=== PATIENT | female | born 1940 | race Caucasian/White ===

== ENCOUNTER 2018-04-11 10:00 | Inpatient (IN) | payer MEDICARE, BC ==
[2018-04-08 13:06] VITALS: BMI 20.5
[2018-04-11 11:24] LABS: #Eosinphils 0.3 thou/uL (0.0-0.7); #Lymphocytes 1.2 thou/uL (1.20-3.40); #Monocytes 0.4 thou/uL (0.11-0.59); #Neutrophils 2.9 thou/uL (1.40-6.50); %Basophils 0.6 % (0.0-1.0); %Eosinophils 6.4 % (0.0-10.0); %Lymphocytes 24.7 % (21.0-51.0); %Monocytes 8.5 % (0.0-10.0); %Neutrophils 59.8 % (42.0-75.0); Hemoglobin 13.1 g/dL (12.0-16.0); Mean Corpuscular HGB CONC 33.9 g/dL (32.0-36.0); Mean Corpuscular Hemoglobin 30.2 pg (27.0-31.0); Mean Corpuscular Volume 89.2 fL (78.0-98.0); Mean Platelet Volume 7.3 fL (7.4-10.4); Platelet Count 163 thou/uL (130-400); RBC Distribution Width 12.3 % (11.5-14.5); Red Blood Cell (RBC) Count 4.34 mill/uL (4.20-5.40); White Blood Cell (WBC) Count 4.9 thou/uL (4.8-10.8)
[2018-04-11 11:42] LABS: Anion Gap 12 mmol/L (10-20); BUN (Urea Nitrogen) 13 mg/dL (9.8-20.1); Calc. Creatinine Clearance 73 mL/min (70-130); Calcium 9.3 mg/dL (7.8-10.44); Carbon Dioxide 24 mmol/L (23-31); Chloride 107 mmol/L (98-107); Estimated GFR-MDRD Greater than 90; Glucose 119 mg/dL (83-110); Potassium 3.5 mmol/L (3.5-5.1); Sodium 139 mmol/L (136-145)
[2018-04-11] MEDS ORDERED: Lidocaine 2% Jelly 5 ML TUBE ONE (13:26)
[2018-04-11] MEDS ORDERED: Fentanyl 100 MCG/2 ML VIAL ONE ×2 (13:26→15:24)
[2018-04-11] MEDS ORDERED: CEFAZOLIN/Water 2 GM/20 ML SYRINGE ONE (13:53)
[2018-04-11] MEDS ORDERED: Bacitracin Zinc Ointment 30 gm TUBE ONE (14:58)
[2018-04-11] MEDS ORDERED: Ondansetron HCl/PF 4 MG/2 ML Vial ONE (16:31)
[2018-04-11] MEDS ORDERED: Glycopyrrolate 0.2 MG/ML 5 ML SYRINGE ONE (16:31)
[2018-04-11] MEDS ORDERED: Lidocaine 1% PF 5 ML VIAL ONE (16:31)
[2018-04-11] MEDS ORDERED: PROPOFOL 200 MG/20 ML VIAL ONE (16:31)
[2018-04-11] MEDS ORDERED: diphenhydrAMINE 50 MG/ML VIAL IVP PRN (16:46)
[2018-04-11] MEDS ORDERED: Ondansetron HCl/PF 4 MG/2 ML Vial SLOW IVP PRN (16:46)
[2018-04-11] MEDS ORDERED: Promethazine HCl 12.5 MG SUPP PR PRN (16:46)
[2018-04-11] MEDS ORDERED: traMADol HCl 50 MG TAB PO PRN (16:46)
[2018-04-11] MEDS ORDERED: Promethazine HCl 25 MG/ML VIAL IM PRN (16:46)
[2018-04-11] MEDS ORDERED: Mag-Al 1200 mg/1200 mg/30 ML UDCUP PO PRN (16:46)
[2018-04-11] MEDS ORDERED: Promethazine 25 MG TAB PO PRN (16:46)
[2018-04-11] MEDS ORDERED: diphenhydrAMINE 25 MG CAP PO PRN (16:46)
[2018-04-11] MEDS: Sodium Chloride 0.9% 1,000 ML IV SCH (17:20)
[2018-04-11] MEDS: HYDROcodone/Acetaminophen 10/325 mg Tablet PO PRN ×2 (17:20→21:55)
--- NOTE | 2018-04-11 18:09 | OP ---
DATE OF PROCEDURE: 04/11/2018 SURGEON: Lucas Garza M.D. TOBACCO DRUMMER: Andry Conner PROCEDURE: L3-4 laminectomy, resection of right L3-L4 extradural mass. PROCEDURE IN DETAIL: The patient was brought to the operating room and intubated. She was rolled in the prone position on gel-filled chest rolls. The previous incision was reopened and extended expos ing L3 and L4. Scar tissue from prior right L3-L4 hemilaminectomy was identified. We performed comp lete L4 and inferior L3 laminectomies. The dura had an unusual appearance and was indented on the ri ght for unclear reasons that did not regain its normal shape after decompression. Additionally, adam ral areas are grossly attenuated. Dura underneath scar tissue were identified and najma CSF was eman ating from these areas. We removed extensive scar tissue and some calcified synovial cyst debris from the left L3-4 lateral r ecess. A complete decompression of left L3-4 was achieved. There were several areas where the dura was attenuated and it is possible that the scar and calcified debris could have gradually violated th e dura over time. We did not, however, open the dura to explore this. The areas of dural attenuatio n were covered with Gelfoam. The wound was extensively irrigated, immaculate hemostasis was secured. Vancomycin powder was applied and the wound was closed in anatomic layers.
[2018-04-11] MEDS ORDERED: Prevnar 13-Val Conj/PF 0.5 ML SYRINGE IM ONE (21:00)
[2018-04-11] MEDS: tiZANidine HCl 4 MG TAB PO PRN (21:55)
[2018-04-11 23:50] LABS: Bilirubin Negative (Negative); Blood, Urine Negative (Negative); Clarity CLEAR (Clear); Glucose, Urine (Dipstick) Negative (Negative); Leukocyte Negative (Negative); Nitrite Negative (Negative); Protein, Urine (Dipstick) Negative (Neg-Trace); Specific Gravity, Urine 1.007 (1.002-1.036); Urobilinogen 0.2 mg/dL (0.2-1.0); pH, Urine 7.5 (5.0-9.0)
[2018-04-11 23:54] LABS: Bacteria/HPF None Seen HPF (None Seen); Hyaline Casts/LPF 0-3 HYALINE CAST LPF (0-3 Hyaline); Pathc Cast-AUWi Flag 0.72 (0-2.49); RBC/HPF 0-3 HPF (0-3); Squamous Epithelial None Seen HPF (0-3); WBC/HPF None Seen HPF (0-3)
[2018-04-12] MEDS: Sodium Chloride 0.9% 1,000 ML IV SCH ×2 (06:18→20:09)
--- NOTE | 2018-04-12 07:20 | PRG ---
DATE OF SERVICE: 04/12/2018 SUBJECTIVE: The patient is a 77-year-old female status post L3-L4 laminectomy, postoperative day #1. Overnight, she reports she continues to have significant pain in the left lower extremity, particularly with movement. When she is lying flat in the bed, she denies any significant discomfort. She is getting p.r.n. hydrocodone and a muscle relaxer as well as p.r.n. morphine as required for pain. She is tolerating a regular diet. She has had some difficulty with voiding overnight with a bladder scan of 700, which required I and O catheterization x1. UA was sent, which was negative for any infection. The patient is lying in the bed comfortably as long as she is still. She is weak throughout the lower extremities as well has a left foot drop, which is unchanged from her baseline. She has a positive left straight leg raise and contralateral SLR. We will continue to monitor her urinary retention closely as well I will also work on pain control, mobilization with PT. I discussed her persistent severe LLE pain with Dr. Garza and we will get am MRI lumbar spine with and without contrast. I anticipate the need for inpatient rehabilitation at some point and I have discussed this with the family as well. Case management will assist with inpatient rehabilitation placement. I will also add gabapentin 300 mg t.i.d. for the patient's left leg radicular pain. SAULD
[2018-04-12] MEDS: HYDROcodone/Acetaminophen 10/325 mg Tablet PO PRN ×3 (08:27→21:05)
[2018-04-12] MEDS: Gabapentin 300 MG CAP PO SCH ×3 (08:27→20:09)
[2018-04-12] MEDS: Carvedilol 3.125 MG TAB PO SCH ×2 (08:27→20:09)
[2018-04-12] MEDS: Amlodipine 5 MG TAB PO SCH (08:31)
[2018-04-12] MEDS ORDERED: Amlodipine 5 MG TAB PO SCH (09:00)
[2018-04-12] MEDS ORDERED: Carvedilol 3.125 MG TAB PO SCH (09:00)
--- NOTE | 2018-04-12 09:38 | EKG ---
Test Reason : PREOP Blood Pressure : / mmHG Vent. Rate : 075 BPM Atrial Rate : 075 BPM P-R Int : 164 ms QRS Dur : 130 ms QT Int : 440 ms P-R-T Axes : 059 -53 112 degrees QTc Int : 491 ms Normal sinus rhythm Left axis deviation Left bundle branch block Abnormal ECG No previous ECGs available Confirmed by BETHANY MEJIA ([id number]) on 04/12/2018 9:37:45 AM Referred By: AUTUMN Confirmed By:BETHANY MEJIA
[2018-04-12] MEDS: Morphine 4 MG/ML VIAL SLOW IVP PRN ×2 (09:56→11:15)
--- NOTE | 2018-04-12 13:45 | MRI ---
BRAIN MRI WITH AND WITHOUT CONTRAST: HISTORY: Left lower extremity pain. Weakness. COMPARISON: None. TECHNIQUE: A brain MRI is performed with and without intravenous Gadolinium administration. Multisequential, mu ltiplanar imaging is performed. FINDINGS: No acute hemorrhage on the axial gradient echo sequence. There is blooming involving the right front al lobe, parafalcine in location, as well as in the posterior and slightly lateral right frontal lobe , just anterior to the sylvian fissure. Blooming is presumed to be due to remote insult versus possi chandler small cavernoma. There is hemosiderin deposition secondary to a remote insult involving the genu of the right internal capsule. There are T2 and FLAIR white matter hyperintensities, which are most compatible with chronic small vessel ischemic change. There is malacic and gliotic change involving the medial left occipital lobe. On the post contrast images, there is no pathologic enhancement of the brain parenchyma. No abnormal enhancement in the region of blooming. The calvarium has a normal T1 marrow signal intensity. Midline brain parenchymal structures are unre markable. The central arterial flow voids are maintained. Absent restricted diffusion. There appear to be an increased number of vessels near the right carotid terminus/anterior communicating artery. The possi bility of a tortuous right internal carotid artery versus and anterior communicating artery aneurysm cannot be excluded. Better interrogation with CT angiogram of the [place] is recommended. Adequate aeration of the visualized sinuses and mastoid air cells. No pathologic enhancement of the brain parenchyma. IMPRESSION: 1. No pathologic enhancement of the brain parenchyma. Absent restricted diffusion. No acute infarc t. 2. Hemosiderin deposition and blooming, as described above. No associated enhancement. The possibi lity of small cavernoma versus sequela of remote hemorrhagic lacunar infarcts are differential consid erations. 3. Questionable aneurysm involving the right carotid terminus versus the anterior communicating karmen ry. Findings may be due to vascular tortuosity. CT angiogram of the [place] is recommended . POS: ALEXANDRA
--- NOTE | 2018-04-12 15:56 | MRI ---
MRI LUMBAR SPINE WITH AND WITHOUT CONTRAST: History: Left lower extremity pain. Post-operative day 1. Comparison: None. Technique: MRI lumbar spine is performed with and without intravenous gadolinium administration. Mult isequential, multiplanar imaging was performed. FINDINGS: There is appropriate T1 marrow signal intensity of the lumbar vertebrae. Vertebral body height is kee ntained. No fracture. No significant STIR hyperintensity to suggest vertebral body edema. There is no abnormal enhancement within the thecal sac, including the cauda equina and conus medullar is. Laminectomy defect at L3-4, L4-5, and L5-S1. T1 and T2 hypointensity along the frontal spinal canal and posterior epidural space at L3, L3-4 disc space. There is enhancing tissue at the operative site suggesting phlegmon of chain/scar formation. T12-L1: Desiccation with mild loss of disc space height. Central disc bulge. Mild central canal steno sis. Mild bilateral foraminal narrowing. L1-2: Desiccation with mild loss of disc space height. There is a broad based disc bulge along with w hat appears to be posterior midline calcification of the longitudinal ligaments overlying a superior and inferior disc extrusion. This results in moderate central canal stenosis. Mild right and mild to moderate left foraminal narrowing. L2-3: Small amount of fluid in the disc space. There is severe loss of disc space height. There is a broad based disc bulge with a left paracentral component. Mild central canal stenosis. Mild right and left foraminal narrowing. L3-4: There is fluid in the disc space. There is a broad based disc bulge and facet hypertrophy. Ther e is severe central canal stenosis. Moderate right and moderate to severe left foraminal narrowing. At the superior aspect of L4, there is a T2 isointense, T1 hypointense, enhancing focus measuring 1.0 x 0.7 cm. Findings may be due to scar formation. The possibility of a meningioma or other benign mas ses cannot be excluded. There does appear to be some enhancement of the foraminal L4 nerve root. Ther e is severe central canal stenosis. L4-5: Disc desiccation with mild loss of disc space height. There is a broad based disc bulge with re sultant moderate central canal stenosis. There may be a small annular fissure along the inferior post erior annulus. Moderate bilateral foraminal narrowing. L5-S1: Severe loss of disc space height. There is a central/left disc protrusion. Disc material abuts and appears to traverse the left S1 nerve root. Mild central canal stenosis. Moderate bilateral fora bishnu narrowing. There is post-operative edema involving the paraspinal soft tissues with associated enhancement. IMPRESSION: 1. Hypointensity involving the posterior epidural space and intrathecal sac, likely representing air from a recent surgery. 2. Enhancing scar tissue at the expected laminectomy defect site. 3. Enhancing focus along the posterior aspect of the thecal sac at L4 which may represent scar tissue . Meningioma or other benign masses cannot be excluded. There appears to be reactive enhancement invo lving the foraminal left L4 nerve root. 4. Effacement of the traversing left S1 nerve root secondary to disc material. 5. There is moderate central canal stenosis at L4-5. 6. Findings were discussed with Renetta Antonio, 04-12-18 at 3:12 p.m. Code CR POS: ALEXANDRA
--- NOTE | 2018-04-12 16:01 | PDOC.PN ---
- Subjective Encounter Start Date: 04/12/18 Encounter Start Time: 11:00 Subjective: pt up in bed was having a lot of pain today - Objective Vital Signs & Weight: Vital Signs (12 hours) Temp Pulse Resp BP BP Pulse Ox 04/12/18 13:20 99.0 F 92 18 132/63 92 L 04/12/18 08:31 100 116/66 04/12/18 08:27 92 L 04/12/18 07:59 100.3 F H 100 18 116/66 92 L 04/12/18 04:00 99.2 F 97 18 102/61 92 L Weight Weight 135 lb I&O: 04/11/18 04/12/18 04/13/18 06:59 06:59 06:59 Intake Total 200 Balance 200 Result Diagrams: 04/11/18 11:12 04/11/18 11:12 Phys Exam - Physical Examination Neck: no nodes, no JVD, supple, full ROM Respiratory: no wheezing, no rales, no rhonchi, wheezing present, clear to auscultation bilateral Cardiovascular: RRR, no significant murmur, no rub, gallop, irregular Gastrointestinal: soft, non-tender, no distention, positive bowel sounds Musculoskeletal: no edema Neurological: moves all 4 limbs left foot drop Dx/Plan (1) Hypertension Code(s): I10 - ESSENTIAL (PRIMARY) HYPERTENSION Status: Acute (2) S/P laminectomy Code(s): Z98.890 - OTHER SPECIFIED POSTPROCEDURAL STATES Status: Acute - Plan pt had severe pain this am -: will put holding parameters on her bp meds -: MRI lumbar ordered. * . Review of Systems - Review of Systems Respiratory: negative: Cough, Dry, Shortness of Breath, Hemoptysis, SOB with Excertion, Pleuritic Pain, Sputum, Wheezing Cardiovascular: negative: chest pain, palpitations, orthopnea, paroxysmal nocturnal dyspnea, edema, light headedness, other Gastrointestinal: negative: Nausea, Vomiting, Abdominal Pain, Diarrhea, Constipation, Melena, Hematochezia, Other Genitourinary: Retention Musculoskeletal: Back Pain - Medications/Allergies Allergies/Adverse Reactions: Allergies Allergy/AdvReac Type Severity Reaction Status Date / Time Corticosteroids Allergy Intermediate Rash Verified 04/11/18 12:51 (Glucocorticoids) corti Allergy Uncoded 04/11/18 12:51 Medications: Current Medications Hydrocodone Bitart/Acetaminophen (Welch 10/325) 1 tab PO Q4H PRN PRN Reason: PAIN (1-3) Last Admin: 04/12/18 08:27 Dose: 1 tab Hydrocodone Bitart/Acetaminophen (Welch 10/325) 2 tab PO Q4H PRN PRN Reason: PAIN (4-6) Last Admin: 04/12/18 13:03 Dose: 2 tab Al Hydroxide/Mg Hydroxide (Maalox) 30 ml PO Q4H PRN PRN Reason: Heartburn or Indigestion Amlodipine Besylate (Norvasc) 5 mg PO DAILY [facility] Last Admin: 04/12/18 08:31 Dose: Not Given Carvedilol (Coreg) 3.125 mg PO BID [facility] Last Admin: 04/12/18 08:27 Dose: 3.125 mg Diphenhydramine HCl (Benadryl) 25 mg PO Q6H PRN PRN Reason: Itching Diphenhydramine HCl (Benadryl) 25 mg IVP Q6H PRN PRN Reason: Itching Gabapentin (Neurontin) 300 mg PO TID [facility] Last Admin: 04/12/18 15:37 Dose: 300 mg Sodium Chloride (Normal Saline 0.9%) 1,000 mls @ 75 mls/hr IV .[id number] [facility] Last Admin: 04/12/18 06:18 Dose: Not Given Morphine Sulfate (Morphine) 2 mg SLOW IVP Q1H PRN PRN Reason: Moderate Breakthrough Pain Morphine Sulfate (Morphine) 4 mg SLOW IVP Q1H PRN PRN Reason: SEVERE BREAKTHROUGH PAIN Last Admin: 04/12/18 11:15 Dose: 4 mg Ondansetron HCl (Zofran) 4 mg SLOW IVP Q8H PRN PRN Reason: Nausea/Vomiting Promethazine HCl (Phenergan) 12.5 mg IM Q4H PRN PRN Reason: Nausea/Vomiting Promethazine HCl (Phenergan) 12.5 mg PO Q4H PRN PRN Reason: Nausea/Vomiting Promethazine HCl (Phenergan Suppository) 12.5 mg MT Q4H PRN PRN Reason: Nausea/Vomiting Sodium Chloride (Flush - Normal Saline) 10 ml IVF PRN PRN PRN Reason: Saline Flush Tizanidine HCl (Zanaflex) 4 mg PO Q6H PRN PRN Reason: MUSCLE SPASM Last Admin: 04/11/18 21:55 Dose: 4 mg Tramadol HCl (Ultram) 50 mg PO Q6H PRN PRN Reason: PAIN (1-3) Tramadol HCl (Ultram) 100 mg PO Q6H PRN PRN Reason: PAIN (4-6)
[2018-04-12] MEDS ORDERED: Gadobenate Dimeglumine 529 MG/1 ML (20ML VIAL) ONE (16:02)
[2018-04-12] MEDS ORDERED: Dexamethasone 4 mg/ml Vial SLOW IVP SCH (19:15)
--- NOTE | 2018-04-13 02:12 | PRG ---
DATE OF SERVICE: 04/12/2018 Ms. Siu continues to have a severe left leg pain and even some migratory right leg pain. She is hav ing some urinary retention, but has full strength and sensation in the lower extremities within the l imits of what her pain will allow. Given these findings, I obtained another MRI scan of the lumbar spine. This shows residual mass in t he left L3-L4 lateral recess. It is contrast enhancing. Because we have just explored the space, I am suspicious that this may represent an intradural lesion. If so, it could represent tumor, or coul d represent intradural migration of a herniated disk or other degenerative process. After extensive review of the patient's previous imaging, history, and the current imaging, I am pio mmending reexploration. I think it would be imperative to do this soon prior to the development of a ny new scar tissue. I think we will re-explore the extradural space, but assuming we did not find th e structural lesion. We then opened the dura and explore for an intradural lesion. They understand that the differential diagnosis is broad and that this case is very unusual with high dose of uncerta inty. They also understand the extensive risks involved including an unquantifiable risk of new neur ologic deficit, certainly now less than 10%. I was quite with them in this regard. However, t he patient had been completely mobilized prior to the procedure and had to be brought in by ambulance and they do not feel that make him continue in the current situation. After extensive discussion of the indications, risks, benefits, alternatives of the re-exploration with possible resection of intr adural tumor. They expressed understanding. All questions were answered and they wish to proceed.
[2018-04-13] MEDS: Sodium Chloride 0.9% 1,000 ML IV SCH ×3 (02:30→20:29)
[2018-04-13] MEDS: Morphine 4 MG/ML VIAL SLOW IVP PRN (05:14)
[2018-04-13] MEDS ORDERED: CEFAZOLIN/Water 2 GM/20 ML SYRINGE ONE (06:35)
[2018-04-13] MEDS ORDERED: Phenylephrine HCL 10 MG/ML VIAL ONE (07:00)
[2018-04-13] MEDS ORDERED: Fentanyl 100 MCG/2 ML VIAL ONE (07:24)
[2018-04-13] MEDS ORDERED: Sodium Chloride 0.9% 10 ML ONE (08:58)
[2018-04-13] MEDS ORDERED: Acetaminophen 650 MG in Premix Bag 1 BAG IVPB PRN (10:10)
--- NOTE | 2018-04-13 13:12 | OP ---
DATE OF PROCEDURE: 04/13/2018 SURGEON: Lucas Garza M.D. FRAME COVERER: Andry Conner PROCEDURE: Reexploration L3-4 laminectomy, resection of intradural mass. PROCEDURE IN DETAIL: The patient was brought to the operating room and intubated. She was rolled in the prone position on gel-filled chest rolls. The previous incision was reopened and the laminectom y defect was identified as well as the dural exposure. We performed a modest amount of additional naz ne work in the region of the left L4 pedicle to maximize exposure. I explored extradurally and found no compressive lesions. We next opened the dura and identified a white mass centrally. The mass is felt like disk material. I dissected circumferentially around the mass and it was quite stuck to al l the rootlets of the cauda equina. There did not seem to be an origin or an exit of any rootlets. There was significant adherence throughout. We completely dissected the lesion and then cut its site of origin which seemed to be emanating from the anterolateral region, presumably the L3-4 disk space . The lesion was then removed in its entirety. Frozen section during the procedure suggested cartil aginous material without neoplasm. The final entire specimen was sent for pathologic examination. The intradural space was then irrigated with saline and the dura was closed with 4-0 Prolene. It was impossible to get a watertight closure given several areas of dural thinning an opening which we had identified the previous surgery. Next, some DuraSeal, a small amount was laid over the dural openin g. The wound was then extensively irrigated, immaculate hemostasis was secured. Vancomycin powder w as applied and the wound was then closed in anatomic layers.
[2018-04-13] MEDS ORDERED: PROPOFOL 200 MG/20 ML VIAL ONE (14:27)
[2018-04-13] MEDS ORDERED: PHENYLEPHRINE-NS 100 MCG/ML 10 ML SYRINGE ONE (14:27)
[2018-04-13] MEDS ORDERED: Dexamethasone 20 MG/5 ML VIAL ONE (14:27)
[2018-04-13] MEDS ORDERED: Ondansetron HCl/PF 4 MG/2 ML Vial ONE (14:27)
[2018-04-13] MEDS ORDERED: Lidocaine 1% PF 5 ML VIAL ONE (14:27)
[2018-04-13] MEDS ORDERED: Glycopyrrolate 0.2 MG/ML 5 ML SYRINGE ONE (14:27)
[2018-04-13] MEDS: Carvedilol 3.125 MG TAB PO SCH ×2 (15:08→20:30)
[2018-04-13] MEDS: Gabapentin 300 MG CAP PO SCH ×3 (15:08→20:29)
[2018-04-13] MEDS: Amlodipine 5 MG TAB PO SCH (15:08)
[2018-04-13] MEDS: Dexamethasone 4 mg/ml Vial SLOW IVP SCH ×2 (15:09→18:27)
--- NOTE | 2018-04-13 17:54 | ULT ---
ULTRASOUND WITH DOPPLER DUPLEX VENOUS LOWER EXTREMITY BILATERAL 04/13/18 CPT: 07097 ICD-10-PCS: [id number] HISTORY: Bilateral lower extremity pain and edema. TECHNIQUE: Color flow Doppler, spectral waveform analysis of pulsed Doppler, and jay-scale imaging with shanita trisha and augmentation, were used to evaluate the bilateral common femoral, femoral, popliteal, wire brush maker ior tibial, and superficial femoral, veins; and the proximal portions of the profunda femoral and gre ater saphenous, veins. FINDINGS: There is abnormal decreased flow and increased echogenicity of the left common femoral vein. No DVT o f the imaged right lower extremity is present. IMPRESSION: Evidence of DVT within the left lower extremity involving common femoral vein. Findings conveyed to patient's nurse, Moira at the time of the exam, 1610 hours. Code CR. POS: ALEXANDRA
[2018-04-14] MEDS: Dexamethasone 4 mg/ml Vial SLOW IVP SCH (04:16)
[2018-04-14 05:17] LABS: #Lymphocytes 0.8 thou/uL (1.20-3.40); #Monocytes 0.6 thou/uL (0.11-0.59); #Neutrophils 9.4 thou/uL (1.40-6.50); %Eosinophils 0.1 % (0.0-10.0); %Lymphocytes 6.9 % (21.0-51.0); %Monocytes 5.6 % (0.0-10.0); %Neutrophils 87.3 % (42.0-75.0); Hemoglobin 10.5 g/dL (12.0-16.0); Mean Corpuscular HGB CONC 32.9 g/dL (32.0-36.0); Mean Corpuscular Hemoglobin 29.5 pg (27.0-31.0); Mean Corpuscular Volume 89.8 fL (78.0-98.0); Mean Platelet Volume 8.1 fL (7.4-10.4); Platelet Count 183 thou/uL (130-400); RBC Distribution Width 12.1 % (11.5-14.5); Red Blood Cell (RBC) Count 3.57 mill/uL (4.20-5.40); White Blood Cell (WBC) Count 10.7 thou/uL (4.8-10.8)
[2018-04-14 05:26] LABS: Anion Gap 10 mmol/L (10-20); BUN (Urea Nitrogen) 13 mg/dL (9.8-20.1); Calc. Creatinine Clearance 85 mL/min (70-130); Carbon Dioxide 25 mmol/L (23-31); Chloride 107 mmol/L (98-107); Estimated GFR-MDRD Greater than 90; Glucose 196 mg/dL (83-110); Potassium 3.3 mmol/L (3.5-5.1); Sodium 139 mmol/L (136-145)
--- NOTE | 2018-04-14 08:14 | PRG ---
DATE OF SERVICE: 04/14/2018 Ms. Siu is doing exceptionally well. She is essentially pain free from a neurologic perspective hav ing only postoperative incisional pain. She was out of bed yesterday. She was off narcotics. Deep venous thrombosis was identified on surveillance ultrasound. She is not a candidate for anticoa gulation, so we will have a temporary IVC filter placed today which we will leave indefinitely. We will begin an aggressive Decadron taper and be finished with this by Wednesday and will discontinue amanda Gaming after her procedure. She will need rehab, but likely be medically ready for this by Wednesday.
[2018-04-14] MEDS: Amlodipine 5 MG TAB PO SCH (08:54)
[2018-04-14] MEDS: Carvedilol 3.125 MG TAB PO SCH ×2 (08:54→20:19)
[2018-04-14] MEDS: Gabapentin 300 MG CAP PO SCH ×3 (08:55→20:19)
[2018-04-14] MEDS ORDERED: Lidocaine 1% (PF) 30 ML VIAL ONE (09:11)
[2018-04-14] MEDS: Famotidine 20 MG TAB PO SCH ×2 (10:02→20:19)
[2018-04-14] MEDS: Dexamethasone 1 MG TAB PO SCH ×3 (10:02→20:19)
[2018-04-14] MEDS: Sodium Chloride 0.9% 1,000 ML IV SCH ×2 (11:12→20:20)
[2018-04-14] MEDS: Potassium Chloride 20 MEQ TAB PO SCH ×3 (11:12→18:37)
--- NOTE | 2018-04-14 14:34 | OP ---
DATE OF PROCEDURE: 04/14/2018 PREOPERATIVE DIAGNOSIS: Deep venous thrombosis in the left femoral vein PROCEDURE: Insertion of a Cook Select IVC vena caval filter. SURGEON: Deric Mack M.D. ANESTHESIA: 1% lidocaine. CONTRAST: 12 mL. FLUOROSCOPY: two minutes even. PROCEDURE IN DETAIL: After prepping and draping, 1% lidocaine was used to infiltrate the right groin. Femoral vein was somewhat difficult to isolate on the ultrasound; however, eventually was found and punctured. Wire was inserted under fluoroscopy. A 4 [place] dilator and sheath placed and a Contra catheter advanced into the inferior vena cava where vena cavography was obtained. IVC cava measured at 12.5 and 12.8 mm thus were at the limits of the Cook Select requirements . Wire was passed into the left renal vein for the purpose of determining the level for filter placement knowing the right renal vein was more cephalad based on MRI. Following this, the wire was placed. The Contra catheter removed as was the 4 [place] sheath and the select dilator and sheath were advanced. We then positioned below the level of the left renal vein. IVC filter was then passed and released. The patient tolerated the procedure well. [facility]
--- NOTE | 2018-04-14 14:53 | PDOC.PN ---
- Subjective Encounter Start Date: 04/14/18 Encounter Start Time: 14:15 -: old records requested/rev Pt seen and examined, chart reviewed in its entirety, this is my first visit with this patient Follow up for consult by Dr Garza for medical management of HTN perioperatively. Back to OR for exploration 04/13 PT with DVT on U/S, IVC filter placed by Frederick today No F/C, no N/V/D/C, no CP or SOB, no cough or sputum production All systems reviewed and neg except as stated above - Objective MAR Reviewed: Yes Vital Signs & Weight: Vital Signs (12 hours) Temp Pulse Resp BP BP BP Pulse Ox 04/14/18 12:20 98.0 F 80 16 133/67 94 L 04/14/18 08:54 81 123/65 04/14/18 07:17 97.6 F 81 18 123/65 93 L 04/14/18 04:22 98.2 F 92 16 115/85 93 L Weight Weight 135 lb I&O: 04/13/18 04/14/18 04/15/18 06:59 06:59 06:59 Intake Total 1890 Output Total 1400 1350 Balance 490 -1350 Result Diagrams: 04/15/18 04:29 04/15/18 04:29 Radiology Reviewed by me: Yes EKG Reviewed by me: Yes Phys Exam - Physical Examination Constitutional: NAD HEENT: PERRLA, moist MMs, sclera anicteric, oral pharynx no lesions Neck: no nodes, no JVD, supple, full ROM Respiratory: no wheezing, no rales, no rhonchi, clear to auscultation bilateral Cardiovascular: RRR, no significant murmur, no rub Gastrointestinal: soft, non-tender, positive bowel sounds slightly distended Musculoskeletal: no edema Neurological: non-focal, normal sensation, moves all 4 limbs Lymphatic: no nodes Psychiatric: normal affect, A&O x 3 Dx/Plan (1) Acute urinary retention Code(s): R33.8 - OTHER RETENTION OF URINE Status: Acute (2) Hypertension Code(s): I10 - ESSENTIAL (PRIMARY) HYPERTENSION Status: Acute (3) S/P laminectomy Code(s): Z98.890 - OTHER SPECIFIED POSTPROCEDURAL STATES Status: Acute - Plan * .
[2018-04-14] MEDS ORDERED: Iopamidol 370 76% 50 ML VIAL FS ONE (15:10)
[2018-04-15 05:18] LABS: #Lymphocytes 0.8 thou/uL (1.20-3.40); #Monocytes 0.7 thou/uL (0.11-0.59); #Neutrophils 4.8 thou/uL (1.40-6.50); %Eosinophils 0.2 % (0.0-10.0); %Lymphocytes 12.9 % (21.0-51.0); %Monocytes 10.6 % (0.0-10.0); %Neutrophils 76.2 % (42.0-75.0); Hemoglobin 10.3 g/dL (12.0-16.0); Mean Corpuscular HGB CONC 32.8 g/dL (32.0-36.0); Mean Corpuscular Hemoglobin 29.5 pg (27.0-31.0); Mean Corpuscular Volume 89.9 fL (78.0-98.0); Mean Platelet Volume 7.5 fL (7.4-10.4); Platelet Count 192 thou/uL (130-400); RBC Distribution Width 12.1 % (11.5-14.5); Red Blood Cell (RBC) Count 3.49 mill/uL (4.20-5.40); White Blood Cell (WBC) Count 6.3 thou/uL (4.8-10.8)
[2018-04-15 05:35] LABS: Anion Gap 7 mmol/L (10-20); BUN (Urea Nitrogen) 11 mg/dL (9.8-20.1); Calc. Creatinine Clearance 85 mL/min (70-130); Calcium 8.8 mg/dL (7.8-10.44); Carbon Dioxide 27 mmol/L (23-31); Chloride 109 mmol/L (98-107); Estimated GFR-MDRD Greater than 90; Glucose 155 mg/dL (83-110); Magnesium 1.9 mg/dL (1.6-2.6); Potassium 3.5 mmol/L (3.5-5.1); Sodium 139 mmol/L (136-145)
[2018-04-15] MEDS: Dexamethasone 1 MG TAB PO SCH ×2 (08:02→20:04)
[2018-04-15] MEDS: Famotidine 20 MG TAB PO SCH ×2 (08:03→20:04)
[2018-04-15] MEDS: Gabapentin 300 MG CAP PO SCH ×3 (08:03→20:04)
[2018-04-15] MEDS: Carvedilol 3.125 MG TAB PO SCH ×2 (08:03→20:04)
[2018-04-15] MEDS: Amlodipine 5 MG TAB PO SCH (08:03)
--- NOTE | 2018-04-15 12:13 | PRG ---
DATE OF SERVICE: 04/15/2018 HOSPITAL COURSE: The patient is a 77-year-old female status post reexploration of L4-L5 surgical site with cauda equina lesion removal. She is postoperative day #2. Since the surgery, she has done extremely well with regards to pain control. She has had resolution of her radicular leg pain and only has some mild soreness at the surgical site. She has been up standing and working in the bed with physical therapy. She was found to have a deep venous thrombosis with ultrasound evaluation and IVC filter was placed yesterday by Dr. Mack. Following this procedure, we did attempt to remove her indwelling Gaming, but the patient continued to have issues with urinary retention, so it was replaced yesterday evening. She is otherwise tolerating a regular diet, is complaining of some slight constipation issues. On visiting the patient this morning, she is awake, comfortable and she moves easily in the bed without any pain which is significantly better than her prior exams. She moves her lower extremities without difficulty. I checked her incision and there is no incisional drainage issues. There is some slight redness around the harriet that we will continue to monitor closely. Considering the patient's bed bound status, she is significantly deconditioned and will have her inpatient rehabilitation after this stay. I am trending down her Decadron and will plan to have her last dose on Wednesday. We will continue to have her work with physical therapy. With regards to her urinary retention, I suspect that this may be an ongoing issue considering the extensive surgery and location of her cauda equina lesion. I have asked Urology to give their opinion on whether indwelling Gaming or prn straight catheterization would be more appropriate. ISAIAS
--- NOTE | 2018-04-15 13:33 | PQF ---
JAYCE ODONNELLECTOR [id number] [facility]- 3314 [id number] CLINICAL DOCUMENTATION IMPROVEMENT CLARIFICATION FORM: ICD-10 Updated Please direct the query to primary surgical team regarding correlation of DVT to current surgical procedure. Thank you. PLEASE DO AN ADDENDUM TO THE PROGRESS NOTE WITH ANY DOCUMENTATION UPDATES OR ADDITIONS AND CARRY THROUGH TO DC SUMMARY. THANK YOU. DATE: 04/15/1804-18-18 ATTN: DR OLIVERA / DR. ESQUIVEL Please provide a response below if a more specific term indicating a diagnosis and/or acuity level for this condition can be identified. Please exercise your independent, professional judgment in responding to the clarification form. Clinical indicators are provided on the bottom of this form for your review. Please check appropriate box(s): [ ] Acute left common femoral vein DVT (Condition) is a complication of current/recent surgery [ ] Acute left common femoral vein DVT (Condition) is not a complication of current/recent surgery [ ] Other diagnosis [ ] Unable to determine In addition, please specify: Present on Admission (POA): [ ] Yes [ ] No [ ] Unable to determine The following CLINICAL INDICATORS - SIGNS / SYMPTOMS are present in the medical record: 04/13 VENOGRAM-LLE DVT INVOLVING COMMON FEMORAL VEIN 04/14 NEUROSURG: DVT IDENTIFIED ON SURVEILLANCE ULTRASOUND RISKS: 04/11 LAMINECTOMY, RESECTION OF RIGHT L3-L4 EXTRADURAL MASS 04/13 Garza: re-exploration L3-L4 LAMINECTOMY, RESECTION OF INTRADURAL MASS TREATMENTS: 04/14 IVC FILTER PLACED PER ORDERS Thank you, Bhavna (This form is maintained as a part of the permanent medical record) 2014 [employer]. All Rights Reserved Bhavna Sandoval RN, BSN, CCDS [email or web address]
[2018-04-15] MEDS: Cephalexin 250 MG CAP PO SCH ×2 (17:39→20:04)
[2018-04-15] MEDS ORDERED: Docusate 100 MG CAP PO PRN (17:56)
[2018-04-15] MEDS: Polyethylene Glycol 3350 17 GM Packet PO SCH (20:03)
--- NOTE | 2018-04-16 09:12 | PRG ---
DATE OF SERVICE: 04/16/2018 I saw Theresa siu this morning on rounds. 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 Pain radia ting down her legs is markedly better. She is able to stand and walk with physical therapy yesterday . They made it about 25 feet before they had to turn around and come back, but she has done better a nd better as time goes by. One issue that continues is some urinary retention. Replaced the Gaming c atheter. We asked Urology to stop by to make recommendations on whether indwelling Gaming for a few w eeks and then removal is better or whether she can be taught self-catheterization. The one thing in her favor is that she may go to inpatient rehabilitation next week and they can help her with cathete rization if intermittent I and O cathing is the recommendation. This weekend, we will watch Ms. Siu and make sure the progress continues. Her neurological examinat ion is reassuring, and we will make arrangements for her to go to rehab on Wednesday.
[2018-04-16] MEDS: Famotidine 20 MG TAB PO SCH ×2 (09:18→20:23)
[2018-04-16] MEDS: Amlodipine 5 MG TAB PO SCH (09:18)
[2018-04-16] MEDS: Polyethylene Glycol 3350 17 GM Packet PO SCH ×2 (09:18→20:23)
[2018-04-16] MEDS: Cephalexin 250 MG CAP PO SCH ×4 (09:19→20:23)
[2018-04-16] MEDS: Carvedilol 3.125 MG TAB PO SCH ×2 (09:19→20:23)
[2018-04-16] MEDS: Dexamethasone 1 MG TAB PO SCH (09:19)
[2018-04-16] MEDS: Gabapentin 300 MG CAP PO SCH ×3 (09:19→20:22)
--- NOTE | 2018-04-16 11:52 | PDOC.PN ---
- Subjective Encounter Start Date: 04/15/18 Encounter Start Time: 10:30 pt feeling a little better, no new complaints remy removod, unable to void, replaced this AM, urology consulted pt still constipated, no BM since prior to admit no f/C, no N/V/D/C, no cough or sputum production All systems reviewed and neg x as per HPI - Objective MAR Reviewed: Yes Vital Signs & Weight: Vital Signs (12 hours) Temp Pulse Resp BP BP Pulse Ox 04/16/18 09:18 74 04/16/18 08:15 97.7 F 72 16 133/78 95 04/16/18 03:54 98.4 F 73 16 105/66 96 04/16/18 00:02 98.4 F 72 16 110/71 93 L Weight Weight 135 lb I&O: 04/15/18 04/16/18 04/17/18 06:59 06:59 06:59 Intake Total 2160 510 Output Total 2600 2275 Balance -440 -1765 Result Diagrams: 04/15/18 04:29 04/15/18 04:29 Phys Exam - Physical Examination Constitutional: NAD HEENT: PERRLA, moist MMs, sclera anicteric, oral pharynx no lesions Neck: no nodes, no JVD, supple, full ROM Respiratory: no wheezing, no rales, no rhonchi, clear to auscultation bilateral Cardiovascular: RRR, no significant murmur, no rub Gastrointestinal: soft, non-tender, no distention, positive bowel sounds Musculoskeletal: no edema Neurological: non-focal, normal sensation, moves all 4 limbs Lymphatic: no nodes Psychiatric: normal affect, A&O x 3 Skin: no rash, normal turgor, cap refill <2 seconds Dx/Plan (1) Acute urinary retention Code(s): R33.8 - OTHER RETENTION OF URINE Status: Acute (2) Hypertension Code(s): I10 - ESSENTIAL (PRIMARY) HYPERTENSION Status: Chronic Qualifiers: Hypertension type: essential hypertension Qualified Code(s): I10 - Essential (primary) hypertension (3) S/P laminectomy Code(s): Z98.890 - OTHER SPECIFIED POSTPROCEDURAL STATES Status: Acute (4) DVT (deep venous thrombosis) Code(s): I82.409 - ACUTE EMBOLISM AND THOMBOS UNSP DEEP VN UNSP LOWER EXTREMITY Status: Acute Qualifiers: DVT location: lower extremity Affected thrombotic vein of extremity: other lower extremity vein Chronicity: acute Laterality: left Qualified Code(s) : I82.492 - Acute embolism and thrombosis of other specified deep vein of left lower extremity - Plan cont current plan of care, plan discussed w/ family, remy catheter, PT/OT, high school social science teacher, out of bed/ambulate * .
--- NOTE | 2018-04-16 11:55 | PDOC.PN ---
- Subjective Encounter Start Date: 04/16/18 Encounter Start Time: 10:50 no new complaints, no good BM yet. No F/C, no N/V/D/C. No urology note yet. All systems reviewed and neg x as per HPI - Objective MAR Reviewed: Yes Vital Signs & Weight: Vital Signs (12 hours) Temp Pulse Resp BP BP Pulse Ox 04/16/18 09:18 74 04/16/18 08:15 97.7 F 72 16 133/78 95 04/16/18 03:54 98.4 F 73 16 105/66 96 04/16/18 00:02 98.4 F 72 16 110/71 93 L Weight Weight 135 lb I&O: 04/15/18 04/16/18 04/17/18 06:59 06:59 06:59 Intake Total 2160 510 Output Total 2600 2275 Balance -440 -1768 Result Diagrams: 04/15/18 04:29 04/15/18 04:29 Phys Exam - Physical Examination Constitutional: NAD HEENT: PERRLA, moist MMs, sclera anicteric, oral pharynx no lesions Neck: no nodes, no JVD, supple, full ROM Respiratory: no wheezing, no rales, no rhonchi, clear to auscultation bilateral Cardiovascular: RRR, no significant murmur, no rub Gastrointestinal: soft, non-tender, no distention, positive bowel sounds Musculoskeletal: edema present Neurological: non-focal, normal sensation, moves all 4 limbs Lymphatic: no nodes Psychiatric: normal affect, A&O x 3 Skin: no rash, normal turgor, cap refill <2 seconds Dx/Plan (1) Acute urinary retention Code(s): R33.8 - OTHER RETENTION OF URINE Status: Acute (2) Hypertension Code(s): I10 - ESSENTIAL (PRIMARY) HYPERTENSION Status: Chronic Qualifiers: Hypertension type: essential hypertension Qualified Code(s): I10 - Essential (primary) hypertension (3) S/P laminectomy Code(s): Z98.890 - OTHER SPECIFIED POSTPROCEDURAL STATES Status: Acute (4) DVT (deep venous thrombosis) Code(s): I82.409 - ACUTE EMBOLISM AND THOMBOS UNSP DEEP VN UNSP LOWER EXTREMITY Status: Acute Qualifiers: DVT location: lower extremity Affected thrombotic vein of extremity: other lower extremity vein Chronicity: acute Laterality: left Qualified Code(s) : I82.492 - Acute embolism and thrombosis of other specified deep vein of left lower extremity (5) Constipation Code(s): K59.00 - CONSTIPATION, UNSPECIFIED Status: Acute Qualifiers: Constipation type: unspecified constipation type Qualified Code(s): K59.00 - Constipation, unspecified Comment: prune juice, miralax - Plan cont current plan of care, PT/OT, social sciences research scientist, out of bed/ambulate * .
[2018-04-16] MEDS ORDERED: Estrogens, Conjugated 30 GM TUBE VAG SCH (12:00)
--- NOTE | 2018-04-16 16:22 | CON ---
DATE OF CONSULTATION: 04/16/2018 REASON FOR CONSULTATION: Postoperative urinary retention after spine surgery. HISTORY OF PRESENT ILLNESS: Ms. Theresa Siu is a very pleasant 77-year-old white female who has undergon e recent spinal surgery by Dr. Lucas Garza. The patient postoperatively has had a DVT and also placement of an IVC filter. She has been unable to void since surgery without the assistance of a F oley catheter. Ms. Siu reports that she actually previously had evaluation in [place] and did have u rinary retention at that time as well and also require a catheter while in hospital due to retention symptoms. She did not follow up with a urologist at that point and does not have an established Urol ogy relationship. The patient reports that she has had a relatively chronic constipation issues. Parth carvajal is postmenopausal and had 4 children, all with vaginal deliveries. She has not had any gynecologic surgery, did not have a hysterectomy, oophorectomy, or any other gynecologic procedures. She denies previous urinary incontinence, slings and other types of operations or procedures for incontinence. Her difficulties only been with retention associated with constipation. Ms. Siu has not been able to void now spontaneously for about 4 days since her operation. She is ot herwise relatively without complaint. She is able to ambulate. She does not report any pelvic pain symptoms or any other difficulties. She did have a urine infection in the last 6 months. ALLERGIES: The patient has reported allergies to CORTICOSTEROIDS. PAST MEDICAL HISTORY: 1. Hypertension. 2. Chronic pain. 3. Cauda equina mass. 4. History of chronic constipation. 5. Postmenopausal status 4, para 4 with no history of gynecologic surgeries. 6. Recent urinary tract infection. PAST SURGICAL HISTORY: 1. The patient apparently had a laminectomy in [place] and subsequently developed a recurrent lumbar radiculopathy, underwent an imaging study of her spine which demonstrated a possible cauda equina mas s which has undergone excision this week. 2. IVC filter placement on this hospitalization. REVIEW OF SYSTEMS: HEENT: Negative. Cardiac: Negative. No history of cardiac stents, bypass or c oronary artery disease. She does have a history of hypertension. Pulmonary: Negative. Gastrointes tinal: The patient has a lifelong history of chronic constipation issues, having bowel movements abo ut every 2-3 days. She takes medications at home and also includes a natural agent such as prune jui ce for management of her bowel program. She has been off that while in hospital. The patient also d rinks hot tea, which seems to help. The patient reports this has been a lifelong issue for her and f eels like she would be able to urinate if she had a bowel movement. Gynecologic: No history of gyne cologic surgeries as noted above. The patient is 4, para 4, all by vaginal deliveries. She denies any symptoms of vaginal prolapse, does not report blood in her urine or blood with wiping. Mu sculoskeletal: No history of complaints. Genitourinary: Negative except for recent UTI. Endocrinologic: Negative. Review of systems otherwise negative x12 systems. PHYSICAL EXAMINATION: VITAL SIGNS: The patient is afebrile with current temperature of 97.7 degrees F, pulse is 74 with re spiratory rate of 16, O2 saturations 95% on room air. HEENT: Extraocular movements are intact. Sclerae are anicteric. Oropharynx is clear. NECK: Supple. LUNGS: Clear to auscultation bilaterally. CARDIOVASCULAR: Regular rate and rhythm without murmur, rub or gallop. ABDOMEN: Slightly distended. Tenderness in all 4 quadrants with percussion. There are no abdominal surgical incisional scar is present. The umbilicus is slightly flattened in appearance, a possible occult umbilical hernia. The patient had an appendectomy previously, scar is barely perceptible. Th ere is left lower quadrant bruise present, possibly secondary to anticoagulation therapy or other med ication administration. There is a right groin access site for placement of the patient's IVC filter . This is dressed appropriately with a Tegaderm dressing. There is no evidence of significant bleed ing. EXTREMITIES: Appear within normal limits. Patient does not have any gross neurologic deficits. PELVIC: Examination finds a low estrogen status. An indwelling Gaming catheter is in place. There i s very light pink coloration to the patient's urine. The periurethral tissue has pallor to it. Estr ogenization would be estimated to be very poor in this thin build patient. BACK: The patient has undergone recent laminectomy procedure and has a dressing in place. LABORATORY AND STUDIES: The patient's white count of 6,300, hemoglobin is 10.3 with hematocrit of 31 .4 on 04/15/2018. The serum chemistry shows the patient's blood urea nitrogen 11, creatinine of 0.53 indicating relative dehydration. Estimated GFR is greater than 90, glucose is 155 suggesting respon se to recent steroid therapy or trend towards diabetes type 2. Urinalysis on 04/11/2018 admission sh owed 0-3 red cells per high power field, no white cells were observed and there were no bacteria obse rved. ASSESSMENT AND PLAN: 1. Low estrogen status. Patient is postmenopausal and has been for many years. She does have natur al ovaries. These are probably not producing much in the way of estrogen at this point. The patient would best be treated with Premarin cream applied to the periurethral area on a daily basis. This s hould be performed probably best at bedtime. There is essentially no systemic absorption vaginally a pplied estrogen products. These are essentially not measurable and could not substantially increase her risk of deep venous thrombosis or pulmonary embolus. 2. Constipation. The patient clearly is constipated and has both chronic and acute manifestations o f that. Abdomen is very tender today. Percussion reveals increased resonance consistent with bowel gas. This would best be treated without use of narcotics, symptomatic support, ambulation, sitting u p in chair, possibly chewing one gum may help. A regular bowel program returned to a regular bowel p rogram methodology probably will help this patient. 3. Acute deep venous thrombosis on presentation, patient is status post IVC filter by Dr. Mack. An ticoagulation should be directed by Dr. Garza, since he has recently performed the surgery. 4. Post-spine surgery. The patient is ambulating and has no focal neurologic deficits to suggest a neurologic cause for the patient's urinary retention. I note the patient self reports i.e., retentio n episode preceding the current retention episode which occurred in [place]. The patient did require a Gaming catheter there, did not have urologic followup, did have retention after surgery and also rep orts a recent urinary tract infection. 5. Retention multifactorial. The patient's urinary retention in this case is probably due to multip le causes, A. Perioperative narcotic pain medications. B. Procedure is the spine surgery and her IVC filter placement, probably are contributors in the sen se that her narcotic use may have been more than one might have expected on the hospitalization since she had a complicating deep venous thrombosis. The narcotic use contributes to constipation. The p atient has a baseline normal state. The patient also has postmenopausal low estrogen status, which a ffects normal urethral function, urethral stricture disease is common in this situation. The patient also self reports a previous urinary tract infection, which preceded her hospitalization. I am pio mmending use of Premarin cream to minimize vaginal colonization with microorganisms contributing to u rinary tract infection and also to support normal urethral function. With respect to the patient's c urrent indwelling Gaming catheter, I would recommend her voiding trial be deferred until after the pat ient had a bowel movement. I would recommend after the bowel movement, the patient undergo bladder s eloy to assess for postvoid residuals. The patient may follow up with me in the [facility] in 2-3 weeks' time for further evaluation and assessment with respect to her urinary retention episode. Over 80 minutes of initial consultation, assessment time spent in the evaluation of Ms. Siu.
[2018-04-16] MEDS: tiZANidine HCl 4 MG TAB PO PRN (20:22)
[2018-04-16] MEDS: traMADol HCl 50 MG TAB PO PRN (20:22)
--- NOTE | 2018-04-17 08:25 | PRG ---
DATE OF SERVICE: 04/17/2018 SUBJECTIVE: I have seen Ms. Theresa Siu in her hospital room this morning. Her daughter reports some co mplaints yesterday of neck and shoulder pains that are slightly different from the pain she had from her operation. She was able to get up with physical therapy, but it was a bit too tired to participa te in all of her therapy yesterday. Pain is well controlled in bed. On the examination this morning, I did not find any new neurological deficits. Dr. Zapata has recommended leaving the Gaming catheter in place for a transfer [facility]. Once in rehab, when she is more mobile, I can remove the catheter and assess bladder control th ereafter. We will follow those recommendations. I reassured Ms. Siu family that the transfer to inpatient rehabilitation tomorrow seems like a reaso nable goal. We will work with physical therapy today.
[2018-04-17] MEDS: Cephalexin 250 MG CAP PO SCH ×4 (09:24→22:10)
[2018-04-17] MEDS: Carvedilol 3.125 MG TAB PO SCH ×2 (09:24→23:15)
[2018-04-17] MEDS: Dexamethasone 1 MG TAB PO SCH (09:24)
[2018-04-17] MEDS: Polyethylene Glycol 3350 17 GM Packet PO SCH ×3 (09:25→22:26)
[2018-04-17] MEDS: Gabapentin 300 MG CAP PO SCH ×3 (09:25→22:10)
[2018-04-17] MEDS: Famotidine 20 MG TAB PO SCH ×2 (09:25→22:10)
[2018-04-17] MEDS: Amlodipine 5 MG TAB PO SCH (09:25)
--- NOTE | 2018-04-17 14:19 | PDOC.PN ---
- Subjective Encounter Start Date: 04/17/18 Encounter Start Time: 11:55 pt had good BM last evenign, no F/C, no N/V/D/C, no CP or SOB all systems reviewed and neg x as above Seen by urology, to try voiding trial after good Bm or at rehab - Objective MAR Reviewed: Yes Vital Signs & Weight: Vital Signs (12 hours) Temp Pulse Resp BP BP BP Pulse Ox 04/17/18 11:28 98.2 F 77 18 120/78 96 04/17/18 09:25 78 120/78 04/17/18 08:00 94 L 04/17/18 07:21 98.3 F 78 18 120/78 94 L 04/17/18 05:09 98.3 F 71 18 105/66 94 L Weight Weight 135 lb I&O: 04/16/18 04/17/18 04/18/18 06:59 06:59 06:59 Intake Total 510 1410 Output Total 2275 520 Balance -1765 890 Result Diagrams: 04/15/18 04:29 04/15/18 04:29 Phys Exam - Physical Examination Constitutional: NAD HEENT: PERRLA, moist MMs, sclera anicteric, oral pharynx no lesions Neck: no nodes, no JVD, supple, full ROM Respiratory: no wheezing, no rales, no rhonchi, clear to auscultation bilateral Cardiovascular: RRR, no significant murmur, no rub Gastrointestinal: soft, non-tender, no distention, positive bowel sounds Musculoskeletal: no edema Neurological: non-focal, normal sensation, moves all 4 limbs Lymphatic: no nodes Psychiatric: normal affect, A&O x 3 Skin: no rash, normal turgor, cap refill <2 seconds Dx/Plan (1) Acute urinary retention Code(s): R33.8 - OTHER RETENTION OF URINE Status: Acute Comment: remy in (2) Hypertension Code(s): I10 - ESSENTIAL (PRIMARY) HYPERTENSION Status: Chronic Qualifiers: Hypertension type: essential hypertension Qualified Code(s): I10 - Essential (primary) hypertension (3) S/P laminectomy Code(s): Z98.890 - OTHER SPECIFIED POSTPROCEDURAL STATES Status: Acute (4) DVT (deep venous thrombosis) Code(s): I82.409 - ACUTE EMBOLISM AND THOMBOS UNSP DEEP VN UNSP LOWER EXTREMITY Status: Acute Qualifiers: DVT location: lower extremity Affected thrombotic vein of extremity: other lower extremity vein Chronicity: acute Laterality: left Qualified Code(s) : I82.492 - Acute embolism and thrombosis of other specified deep vein of left lower extremity (5) Constipation Code(s): K59.00 - CONSTIPATION, UNSPECIFIED Status: Acute Qualifiers: Constipation type: unspecified constipation type Qualified Code(s): K59.00 - Constipation, unspecified Comment: prune juice, miralax - Plan cont current plan of care, plan discussed w/ family, remy catheter, PT/OT, out of bed/ambulate * .
[2018-04-17] MEDS: traMADol HCl 50 MG TAB PO PRN (15:25)
[2018-04-17] MEDS: tiZANidine HCl 4 MG TAB PO PRN (15:26)
--- NOTE | 2018-04-17 17:56 | CON ---
DATE OF CONSULTATION: 04/17/2018 INITIAL REASON FOR CONSULTATION: Postoperative urinary retention following spine surgery. REFERRING PHYSICIAN: Lucas Garza M.D. BRIEF HISTORY: Ms. Theresa Siu is a very pleasant 77-year-old white female who recently underwent sp inal surgery by Dr. Lucas Garza. The patient has had a postoperative diagnosis of a deep venou s thrombosis and also placement of an IVC filter. The patient has been unable to void since surgery without assistance of a Gaming catheter. The patient does admit to constipation troubles at home as w ell as cramping sensations in her left leg, which predates her surgery. The patient also had previou s episode of urinary retention while in hospital in [place] as well as a recent urinary tract infectio n. The patient did not have follow up with a urologist during her [place] hospitalization and does no t have established Urology relationship in [facility]. The patient underwent evaluation yesterday for post operative urinary retention and we traced her difficulties primarily to a few causes. Longstanding c hronic constipation issues as well as low estrogen status were primary considerations as well as her history of 3 recent surgical interventions primarily with concern for pain medication usage associate d with those. The patient had 2 procedures performed within the last week including her spine surger y and IVC filter placement. She has had some postoperative pain. The patient does have chronic cons tipation issues as well and reports that she did have 1 bowel movement overnight. Please see my complete history and physical examination from yesterday for additional details of the patient's medical history, medications, allergies and previous surgical history. PHYSICAL EXAMINATION: VITAL SIGNS: The patient is afebrile with current temperature of 98.6, pulse 93, respirations 18, O2 saturation on room air is 94%, blood pressure is 97/60 down from a blood pressure of 120/78 earlier today. HEENT: Extraocular movements are intact. Sclerae are anicteric. Oropharynx is clear. NECK: Supple. The patient noticed trigger point sensitivities in the trapezius muscles bilaterally in the back of the neck. These do not appear to be focal or associated with any direct surgical inte rvention. LUNGS: Clear bilaterally. CARDIAC: Regular rate and rhythm without murmur, rub or gallop. ABDOMEN: Soft and nontender. Percussion of the abdomen, however, reveals tenderness especially in t he right upper quadrant area. There is increased resonance in that area consistent with bowel gas co nsistent with ongoing chronic constipation issues. Despite the fact the patient has had a bowel move ment, she still remains tender in her abdomen and percussion locates probable air in the right upper quadrant area associated with the patient's ileus. GENITOURINARY: A Gaming catheter remains in place. We did not repeat actual formal vaginal examinati on today, but we did note on yesterday's examination that the patient has periurethral pallor consist ent with low estrogen status and we recommended use of Premarin cream applied in the periurethral are a. ASSESSMENT: 1. 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 Normal urethral function requires estrogen. The patient has a low estrogen status. Despite the patient's history o f deep vein thrombosis, I am recommending application of periurethral estrogen. There is no systemic absorption of topically applied periurethral estrogen to be a contributor to blood clotting or any o ther issues. 2. Chronic constipation. The patient despite a bowel movement has not cleared her colon at this poi nt and this is probably a primary consideration as far as the patient's urinary retention. I am pio mmending continuation of a bowel program as when the patient is discharged. 3. History of acute deep venous thrombosis. The patient is status post IVC filter by Dr. Mack. An ticoagulation will be as directed by Dr. Garza. 4. Status post spine surgery. The patient was ambulating yesterday and had less ambulatory activity today. She has no focal neurologic deficits to suggest a neurologic cause for her current urinary r etention. 5. Urinary retention, multifactorial. As outlined above, this patient has multiple potential causes for her urinary retention. Please see my note from yesterday for additional details. PLAN: With respect to the patient's urinary tract, the patient may undergo a voiding trial in rehab where a suitable voiding trial protocol is in place. Otherwise, the patient may present to my office in 10 days to 2 weeks for a voiding trial and further assessment. If the patient does not have norm al voiding function after clearance of her stool and institution of an estrogen application treatment plan, then the patient could undergo formal urodynamics in my office if required. Over 35 minutes of consultation and assessment time was spent in evaluation and assessment of this pa tient today.
[2018-04-17] MEDS: Estrogens, Conjugated 30 GM TUBE VAG SCH (22:11)
--- NOTE | 2018-04-18 07:12 | PRG ---
DATE OF SERVICE: 04/18/2018 I saw Theresa Siu in her hospital room this morning. She had some neck and shoulder pain yesterday that prevented her from participating fully in her physical therapy. She was able to get out of bed. Fol ey catheter is still in place. Ms. Siu has not had any fevers or chills. On neurological examination, I do not find any new defici ts. There is some paraspinal muscle tenderness around the neck. I felt that Ms. Siu has neck and shoulder pain from positioning prone on the operating table for 2 d istinct operations last week and lying in the bed is uncomfortable and not what she is used to. Pedro barnard surgical intervention intradurally can obviously cause some inflammatory reaction in the meninges . This is usually quite self-limited. If she needs a short course of a Medrol Dosepak to get throug h this and participate more fully in therapy, we can initiate that. This slightly increases the risk of wound healing difficulties and infection, but it may be necessary for her to complete the therapy she needs.
[2018-04-18] MEDS: Amlodipine 5 MG TAB PO SCH (08:47)
[2018-04-18] MEDS: Famotidine 20 MG TAB PO SCH ×2 (08:48→20:52)
[2018-04-18] MEDS: tiZANidine HCl 4 MG TAB PO PRN ×2 (08:48→14:29)
[2018-04-18] MEDS: Gabapentin 300 MG CAP PO SCH ×3 (08:48→20:52)
[2018-04-18] MEDS: Dexamethasone 1 MG TAB PO SCH (08:48)
[2018-04-18] MEDS: Polyethylene Glycol 3350 17 GM Packet PO SCH (08:48)
[2018-04-18] MEDS: Cephalexin 250 MG CAP PO SCH ×4 (08:48→20:52)
[2018-04-18] MEDS: Carvedilol 3.125 MG TAB PO SCH ×2 (08:48→20:52)
[2018-04-18] MEDS: traMADol HCl 50 MG TAB PO PRN ×3 (08:49→20:55)
[2018-04-18] MEDS ORDERED: methylPREDNISolone 4 mg Tablet PO SCH (11:00)
[2018-04-18] MEDS: methylPREDNISolone 4 mg Tablet PO SCH ×3 (13:41→20:53)
--- NOTE | 2018-04-18 13:54 | PRG ---
DATE OF SERVICE: 04/18/2018 Dizziness spell this morning in the hospital room. She is sitting in the bed comfortably. She is co mplaining of some bilateral shoulder discomfort at any time she attempts to move. This has limited h er ability to complete physical therapy yesterday afternoon. She did get up and stand for a short pe riod of time she says, but was unable to participate any further secondary to pain. She has not haris en many pain medications and reports she has not had anything since last night at 5:00 p.m. She is c omfortable as long as she is not moving but has some soreness over the paraspinal muscles with any so rt of movement. She otherwise continues to have good strength in her legs and no new neurologic defi cits. Gaming catheter remains in place per Urology recommendations. She has had 2 bowel movements. The patient is sitting in bed comfortably. I attempted to sit the patient up, but she has significan t discomfort to bilateral paraspinal musculature. This is tender to palpation on my exam. Her incis ion appears to be healing appropriately. She has no new focal neurologic deficits. With regards to pain control, I have advised the patient to ask for pain medicines or muscle relaxers more frequently if needed and particularly before any physical therapy sessions. We will also consi renetta adding a Medrol Dosepak for what I believe is likely muscle inflammation following her 2 lumbar s urgeries. I anticipate that she will be able to [facility] tomorrow.
--- NOTE | 2018-04-18 19:20 | PDOC.PN ---
- Subjective Encounter Start Date: 04/18/18 Encounter Start Time: 17:00 Subjective: f/u s/p lumbar laminectomy and extradural mass resection. Some pain with -: movement. Working with PT ambulated 12 feet x2. - Objective MAR Reviewed: Yes Vital Signs & Weight: Vital Signs (12 hours) Temp Pulse Resp BP BP Pulse Ox 04/18/18 15:44 98.1 F 86 16 96/61 93 L 04/18/18 13:45 97.4 F L 89 18 105/54 L 96 04/18/18 08:45 98.3 F 92 16 108/65 92 L Weight Weight 135 lb I&O: 04/17/18 04/18/18 04/19/18 06:59 06:59 06:59 Intake Total 1942 612 5048 Output Total 843 272 6372 Balance 890 250 72 Result Diagrams: 04/15/18 04:29 04/15/18 04:29 Phys Exam - Physical Examination Constitutional: NAD HEENT: PERRLA, sclera anicteric, oral pharynx no lesions Neck: no nodes, no JVD, supple, full ROM Respiratory: no wheezing, no rales, no rhonchi, clear to auscultation bilateral S1, S2 Cardiovascular: RRR, no significant murmur, no rub, gallop Gastrointestinal: soft, non-tender, no distention, positive bowel sounds Musculoskeletal: no edema, pulses present Neurological: normal sensation, moves all 4 limbs Psychiatric: A&O x 3 Skin: no rash, normal turgor, cap refill <2 seconds Dx/Plan (1) Acute urinary retention Code(s): R33.8 - OTHER RETENTION OF URINE Status: Acute Comment: Gaming decompression, voiding trials at later date (2) Constipation Code(s): K59.00 - CONSTIPATION, UNSPECIFIED Status: Acute Qualifiers: Constipation type: unspecified constipation type Qualified Code(s): K59.00 - Constipation, unspecified Comment: Improved with laxatives, continue bowel regimen (3) DVT (deep venous thrombosis) Code(s): I82.409 - ACUTE EMBOLISM AND THOMBOS UNSP DEEP VN UNSP LOWER EXTREMITY Status: Acute Qualifiers: DVT location: lower extremity Affected thrombotic vein of extremity: other lower extremity vein Chronicity: acute Laterality: left Qualified Code(s) : I82.492 - Acute embolism and thrombosis of other specified deep vein of left lower extremity Comment: s/p IVC filter placement 04/14/18 (4) S/P laminectomy Code(s): Z98.890 - OTHER SPECIFIED POSTPROCEDURAL STATES Status: Acute Comment: Pain control, PT for mobilization, Rehab/SNF options (5) Hypertension Code(s): I10 - ESSENTIAL (PRIMARY) HYPERTENSION Status: Chronic Qualifiers: Hypertension type: essential hypertension Qualified Code(s): I10 - Essential (primary) hypertension Comment: Continue Coreg and Amlodipine - Plan continue antibiotics, PT/OT, hospital social worker, out of bed/ambulate Stable overall -: Pain control per surgery -: OOB with PT -: Continue Amlodipine and Coreg -: SNF/Rehab options pending * .
[2018-04-18] MEDS: Estrogens, Conjugated 30 GM TUBE VAG SCH (20:52)
[2018-04-19] MEDS: Polyethylene Glycol 3350 17 GM Packet PO SCH ×2 (02:50→09:19)
[2018-04-19] MEDS: Cephalexin 250 MG CAP PO SCH ×2 (09:19→13:13)
[2018-04-19] MEDS: Amlodipine 5 MG TAB PO SCH (09:20)
[2018-04-19] MEDS: Famotidine 20 MG TAB PO SCH (09:20)
[2018-04-19] MEDS: Carvedilol 3.125 MG TAB PO SCH (09:20)
[2018-04-19] MEDS: Gabapentin 300 MG CAP PO SCH (09:20)
[2018-04-19] MEDS: methylPREDNISolone 4 mg Tablet PO SCH ×2 (09:21→13:14)
[2018-04-19] MEDS: traMADol HCl 50 MG TAB PO PRN (09:29)
[2018-04-19] MEDS: tiZANidine HCl 4 MG TAB PO PRN (09:33)
--- NOTE | 2018-04-19 09:59 | PQF ---
JAYCE ODONNELL ECTOR [id number] [facility] [id number] I have been asked to document whether the DVT treated last week was present prior to, or after, the surgery performed by Dr. Garza. Because the timing of the DVT has little to do with my care for this patient, while Dr. Garza is away, I have nothing to say on the subject of timing. Perhaps more information can be obtained from Dr. Garza on his return. In the meantime, I will continue to care for the patient in his absence. ISAIAS
--- NOTE | 2018-04-19 10:10 | PRG ---
DATE OF SERVICE: 04/19/2018 SUBJECTIVE: Ms. Theresa Siu in her hospital room this morning. She is still sleeping as I entered the r oom. I awake her and she is only slightly disoriented, but reorients quickly. She thinks yesterday evening was better after starting her steroid Dosepak. She is eager to start her physical therapy to day and see how well she can participate. If she is much better this morning, then have in the rehabilitation for her. We will make that transfer happen today as long as she is ready to particip ate in therapy.
[2018-04-19 11:45] VITALS: BP 101/67; TEMP 97.8
--- NOTE | 2018-04-19 12:50 | DIS-2 ---
ATTENDING PHYSICIAN: Lucas Garza M.D. DATE OF ADMISSION: 04/11/2018 DATE OF DISCHARGE: 04/19/2019. DISCHARGE SUMMARY: The patient is a 77-year-old female status post L3-L4 laminectomy which required reexploration 2 days later with finding of intradural lesions at L3-L4 consistent with some herniated disk material. Postoperatively, she was admitted to the [facility] surgical floor where her pain was significantly improved following her second surgery. She did have some mild soreness at the tin gical site and developed some soreness along the neck and shoulders, particularly with moving. We fe lt that the soreness to her neck and shoulders are likely secondary to positioning following the surg nadeem or during the surgery as well as increased compensation using her upper body with mobilization. She was able to mobilize during her inpatient stay with physical therapy and was overall moving much better. She had no neurologic deficits on exam. Her course was complicated by the development of ur inary retention and she was seen by Urology who felt that indwelling Gaming catheter was the most appr opriate with plan voiding trial when she is transitioned to inpatient rehabilitation and her constipa tion has improved. The patient also had development of DVT and she was seen by Dr. Mack to place IV C filter. The plan is to remain off any oral anticoagulants indefinitely at this time. Considering her significantly deconditioned status from prior to her surgery, the patient will require inpatient rehabilitation. We will plan to transition her to a correction facility. On visiting in the patient this morning, she is sitting up comfortably in bed. She has free active r amrita of motion of all extremities. No focal motor weakness, no reflex asymmetry. Her incision aubrey nues to heal well. The harriet are in place. No incisional drainage is appreciated. We will plan to transition the patient to inpatient rehabilitation later today. We will plan to foll ow up in the office in approximately 2 weeks to recheck on the patient as well to remove her harriet. She has been provided with scripts for pain control, antibiotics. Please reach out to Neurosurgery for additional questions or concerns.
[2018-04-19] MEDS ORDERED: methylPREDNISolone 4 mg Tablet PO SCH (21:00)
--- NOTE | 2018-04-19 23:35 | DIS ---
DATE OF ADMISSION: 04/11/2018 DATE OF DISCHARGE: 04/19/2018 DISCHARGE DIAGNOSES: 1. Status post lumbar laminectomy with revision and extradural mass resection. 2. Acute urinary retention, status post Gaming catheter placement. 3. Constipation. 4. Acute left lower extremity deep venous thrombosis, no anticoagulation. 5. Status post IVC filter placement on 04/14/2018. 6. Hypertension, stable. PRIMARY SERVICE ATTENDING: Dr. Garza and Dr. Crawford with Neurosurgical Services. Dr. Mack [facility] V[facility] Surgery Service. Dr. Chris Zapata with Urology. PERTINENT LABORATORY AND X-RAY FINDINGS: Potassium ranged between 3.3-3.5, magnesium 1.9. CBC showe d a white blood cell count ranging between 4.9-10.7, hemoglobin ranged between 10.3-13.1. MRI of the brain dated 04/12/2018, showed no acute intracranial process. No acute infarct identified. MRI of the lumbar spine dated 04/12/2018, showed hypointensity involving the posterior epidural space and in trathecal sac likely representing air from recent surgery. Moderate central canal stenosis at L4-L5. Please see dictated report for full details. HOSPITAL COURSE: Patient was admitted under the Neurosurgical Service after initially presenting wit h lumbar stenosis, undergoing lumbar laminectomy as well as excision of mass. The patient deve loped a left lower extremity deep venous thrombosis postoperatively undergoing evaluation by Vascular Surgery Service due to lack of ability to take oral anticoagulation in the context of recent lumbar spinal surgery. The patient underwent IVC filter placement on 04/14/2018 and tolerated the procedure without difficulty. The patient also developed acute urinary retention postoperatively, likely mult ifactorial, undergoing Gaming catheter placement with bladder decompression. Current recommendations are to continue Gaming catheter with voiding trials in the near future after transfer to inpatient radha abilitation. The patient is overall slow to clinically improve; however, was deemed an appropriate c andidate for ongoing inpatient rehabilitation care. The patient overall clinically stable and ready for transfer to inpatient rehabilitation on 04/19/2018. DISCHARGE MEDICATIONS: 1. Norvasc 5 mg 1 tab p.o. daily. 2. Coreg 3.125 mg p.o. b.i.d. 3. Gabapentin 300 mg p.o. t.i.d. 4. [place] 10/325 mg 1 tab p.o. q.6 hours p.r.n. pain. 5. Zanaflex 4 mg p.o. every 6 hours p.r.n. 6. Keflex 500 mg p.o. q.i.d. x10 days. 7. Colace 100 mg p.o. daily. 8. Pepcid 20 mg p.o. b.i.d. 9. Medrol Dosepak. 10. Protonix 40 mg p.o. daily. 11. MiraLax 17 grams p.o. b.i.d. 12. Phenergan 12.5 mg p.o. q.4-6 hours p.r.n. 13. Tramadol 50 mg 1-2 tabs p.o. q.6 hours p.r.n. pain. FOLLOWUP: The patient is to follow up with Neurosurgical Services. The patient will follow up with Dr. Deric Mack with Vascular Surgery Service. The patient will follow up with Dr. Hayden Humphries, primary care provider. The patient will follow up with Dr. Chris Zapata with Urology Service. CONDITION ON DISCHARGE: Fair. ACTIVITY: Ad jarad. DIET: Regular. CODE STATUS: FULL. DISPOSITION: Discharged to [facility]patient Rehabilitation on 04/19/2018.
[2018-04-20] MEDS ORDERED: methylPREDNISolone 4 mg Tablet PO SCH (08:00)
[2018-04-21] MEDS ORDERED: methylPREDNISolone 4 mg Tablet PO SCH (08:00)
[2018-04-22] MEDS ORDERED: methylPREDNISolone 4 mg Tablet PO SCH (08:00)
[2018-04-23] MEDS ORDERED: methylPREDNISolone 4 mg Tablet PO SCH (08:00)
== END 2018-04-19 15:21 | DRG 519 ==
LOC: SDC 10:00 → SJJU 16:23
PROVIDERS: ADMIT Neurological Surgery; ATTEND Neurological Surgery
PROC: 01NB0ZZ Release Lumbar Nerve, Open Approach (ICD-10-PCS; principal; 2018-04-11)
PROC: 00BT0ZZ Excision of Spinal Meninges, Open Approach (ICD-10-PCS; 2018-04-13)
PROC: 06H03DZ Insertion of Intraluminal Device into Inferior Vena Cava, Percutaneous Approach (ICD-10-PCS; 2018-04-14)
DX: M51.16 Intervertebral disc disorders with radiculopathy, lumbar region (principal); I82.412 Acute embolism and thrombosis of left femoral vein; G83.4 Cauda equina syndrome; M48.8X6 Other specified spondylopathies, lumbar region; M21.372 Foot drop, left foot; M71.38 Other bursal cyst, other site; I10 Essential (primary) hypertension; N95.1 Menopausal and female climacteric states; R33.9 Retention of urine, unspecified; G89.29 Other chronic pain; K59.09 Other constipation; Z87.440 Personal history of urinary (tract) infections; Z79.891 Long term (current) use of opiate analgesic; M54.2 Cervicalgia; M25.512 Pain in left shoulder; M25.511 Pain in right shoulder
CPT/HCPCS: 36415; 37191; 70553; 72158; 76001; 76942; 80048; 81001; 83735; 85025; 88304; 88305; 88307; 88313; 88331; 88341; 88342; 93005; 93010; 93970; A9579; C1769; G8978-GP-CM; G8979-GP-CK; G8987-GO-CM; G8988-GO-CL; J1100; J1200; J1644; J2001; J2270; J2370; J2405; J2704; J3010; J3370; J3490; J8540

== ENCOUNTER 2018-05-30 09:16 | Outpatient (CLI) | payer MEDICARE, BC ==
--- NOTE | 2018-05-30 12:45 | MRI ---
LUMBAR SPINE MRI WITH AND WITHOUT CONTRAST: DATE: 05/30/2018. COMPARISON: Lumbar spine MRI with and without contrast 04/12/2018. HISTORY: Left leg pain, back pain, prior laminectomy. TECHNIQUE: Multiplanar, multisequence MR imaging of the lumbar spine obtained with and without contrast. FINDINGS: The sagittal STIR imaging demonstrates no focal area of osseous marrow edema. The patient appears status post bilateral laminectomy at L4. At the laminectomy site posterior to th e thecal sac at the L4 level, there is a T2 hyperintense mildly complex fluid collection measuring 2. 3 cm AP dimension, 1.6 cm transverse dimension, and 3.6 cm craniocaudal dimension. Small volume flui d is also noted within the subcutaneous fat posterior to the spinous processes at L3 and L4 measuring 5.3 cm craniocaudal dimension and 1.4 cm AP dimension. Both fluid collections are new when compared to the 04/12/2018 study. On the basis of 5 lumbar-type vertebral bodies, conus medullaris terminates at the T12-L1 level. T12-L1: Disk space narrowing, disk desiccation, and mild disk bugle. Mild bilateral facet hypertrop hy. No significant central canal or neural foraminal stenosis. L1-2: There is a central annular tear with an associated central disk herniation demonstrating infer ior migration. This disk herniation with inferior migration is similar when compared to the 04/12/20 18 exam. There is mild bilateral facet hypertrophy. There is stable moderate central canal stenosis . No neural foraminal stenosis. L2-3: Stable foraminal and post foraminal disk protrusion on the left. Stable mild bilateral facet hypertrophy. Mild stable left neural foraminal stenosis. No central canal or right neural foraminal stenosis. L3-4: Disk space narrowing and disk desiccation noted with mild disk bulge and moderate central jc l stenosis. Central canal stenosis has improved since the prior examination. Prior exam demonstrate d foci of T2 hypointensity adjacent to the thecal sac which has resolved suggesting interval resoluti on of postoperative gas or postoperative hemorrhage. Bilateral facet hypertrophy noted. Mild left neural foraminal stenosis. L4-5: There is a central disk protrusion and associated annular tear. There is disk space narrowing and disk desiccation with mild disk bulge causing a mild degree of central canal stenosis. Bilatera l facet hypertrophy noted with no significant neural foraminal stenosis. L5-S1: There is disk space narrowing, disk desiccation, and disk bulge with a small superimposed xenia tral/left paracentral disk protrusion. There is mild inferior migration. This disk protrusion and i nferior migration is less conspicuous than on the prior exam. There is mild central canal stenosis a nd mild left lateral recess stenosis. No significant neural foraminal stenosis. The postcontrast imaging demonstrates no abnormal enhancement involving the nerve roots of the cauda equina. There is mild rim enhancement of the fluid collection dorsal to the thecal sac at the L4 level. Imaged retroperitoneal structures demonstrate no acute findings. There is no abnormal enhancement involving the intervertebral disks or the imaged osseous structures. Postcontrast imaging demonstrates mild enhancement involving the medial aspect of the posterior kavon rita musculature bilaterally at the L4-5 level suggesting postoperative scar. IMPRESSION: Multilevel degenerative change with areas of central canal and/or neural foraminal stenosis as docume nted above. There is a new fluid collection posterior to the thecal sac at the L4 level which could represent resolving hematoma, postoperative seroma, and/or abscess. Distinction cannot be made on th e basis of this exam. No MR evidence of diskitis or osteomyelitis. POS: ALEXANDRA
== END 2018-05-30 09:17 | disposition home or self-care (01) ==
LOC: MRI 09:16
PROVIDERS: ATTEND Family Medicine
DX: Z47.89 Encounter for other orthopedic aftercare (principal); M47.816 Spondylosis without myelopathy or radiculopathy, lumbar region; M48.061 Spinal stenosis, lumbar region without neurogenic claudication; M48.07 Spinal stenosis, lumbosacral region; Z98.890 Other specified postprocedural states
CPT/HCPCS: 72158